=== PATIENT | female | born 1945 | race Caucasian/White ===

== ENCOUNTER 2016-07-23 10:15 | Outpatient (RCR) | payer MEDICARE, BC ==
[~2016-07-23 10:15] MED LIST: CLARITIN 1010 MG/TAB PO; COZAAR100 MG PO; DIFLUCAN 100MG100 MG PO; FLONASEALLERGY NS; GLUCOTROL XL10 MG PO; HUMULIN N PE100 U/ML SC; HYGROTON 2525 MG/TAB; JANUVIA 100MG100 MG PO; LEVAQUIN 5500 MG/TA1 PO; MULTI VITAMINS1 TAB PO; OSCAL 500 TAB500 MG PO; PREDNISONE20 MG PO; PRILOSEC 20MG20 MG PO; PROAIR HFA0.09 MG/AC IH; PROBIOTIC-MAJOR PO; TRIAM OI 0.1 80 TOP; TUSSIN DM 10 M118 M1 PO; VERAMYST27.5 MCG/A NS
[2017-02-04] MEDS ORDERED: ASPIRIN 81M81 MG/TA2 PO (16:26)
[2017-02-04] MEDS ORDERED: LIPITOR 10MG10 MG PO (16:26)
== END 2016-07-26 | disposition home or self-care (01) ==
LOC: MKS.ESL.PT
DX: M25.562 Pain in left knee (principal); Z98.890 Other specified postprocedural states
CPT/HCPCS: G0283-GP; G8978-GP; G8979-GP

== ENCOUNTER 2016-07-29 10:15 | Outpatient (RCR) | payer MEDICARE, BC ==
[2017-02-04] MEDS ORDERED: ASPIRIN 81M81 MG/TA2 PO (16:26)
[2017-02-04] MEDS ORDERED: LIPITOR 10MG10 MG PO (16:26)
== END 2016-10-25 | disposition home or self-care (01) ==
LOC: MKS.ESL.PT
DX: Z47.1 Aftercare following joint replacement surgery (principal); Z96.652 Presence of left artificial knee joint

== ENCOUNTER → 2017-01-05 | Outpatient (CLI) | payer MEDICARE, BC ==
[~2017-01-05] MED LIST changes: +ASPIRIN 81M81 MG/TA2 PO; +LIPITOR 10MG10 MG PO
== END ==
LOC: MC.RAD 12-30 11:00
DX: Z12.31 Encounter for screening mammogram for malignant neoplasm of breast (principal)

== ENCOUNTER → 2017-02-09 | Outpatient (CLI) | payer MEDICARE, BC ==
[~2017-02-09] VITALS: Ht 167.6 cm; Wt 91.5 kg
[2017-02-09 06:01] VITALS: BP 116/70; PULSE 86
[2017-02-09 07:00] VITALS: BP 134/71; PULSE 86
[2017-02-09 07:04] VITALS: BP 145/83; PULSE 107
[2017-02-09 07:05] VITALS: BP 143/83; PULSE 104
[2017-02-09 07:06] VITALS: BP 135/72; PULSE 101
[2017-02-09 07:07] VITALS: BP 135/74; PULSE 99
== END ==
LOC: COL.CARD 05:34
DX: E11.9 Type 2 diabetes mellitus without complications (principal); R07.9 Chest pain, unspecified; I10 Essential (primary) hypertension; Z80.2 Family history of malignant neoplasm of other respiratory and intrathoracic organs; Z80.3 Family history of malignant neoplasm of breast
CPT/HCPCS: A9502; J2785

== ENCOUNTER → 2018-01-19 | Outpatient (CLI) | payer MEDICARE, BC | LOC: MC.RAD 10:40 | DX: Z12.31 Encounter for screening mammogram for malignant neoplasm of breast (principal) ==

== ENCOUNTER → 2018-08-03 | Outpatient (CLI) | payer MEDICARE, BC | LOC: COL.VAS 08:43 | DX: R06.02 Shortness of breath (principal) ==

== ENCOUNTER → 2019-01-26 | Outpatient (CLI) | payer MEDICARE, BC | LOC: MC.RAD 15:32 | DX: Z12.31 Encounter for screening mammogram for malignant neoplasm of breast (principal) ==

== ENCOUNTER → 2020-02-01 | Outpatient (CLI) | payer MEDICARE, BC | LOC: MC.RAD 01-29 10:45 | DX: Z12.31 Encounter for screening mammogram for malignant neoplasm of breast (principal); N64.89 Other specified disorders of breast ==

== ENCOUNTER → 2020-02-08 | Outpatient (CLI) | payer MEDICARE, BC | LOC: MC.RAD 13:27 | DX: Z12.31 Encounter for screening mammogram for malignant neoplasm of breast (principal); N64.89 Other specified disorders of breast ==

== ENCOUNTER → 2020-05-13 | Outpatient (CLI) | payer MEDICARE, BC ==
[2005-11-27 18:10] VITALS: BP 169/92
[~2020-05-13] VITALS: Ht 167.6 cm; Wt 108.4 kg
[~2020-05-13] MED LIST changes: +00186-0370-20 IH; +ESTRACE0.1 MG/GM VG; +FENOGLIDE120 MG PO
[2020-05-13 15:33] VITALS: BP 106/72; PULSE 86; TEMP 97.5
== END ==
LOC: EUO 15:00
DX: M81.0 Age-related osteoporosis without current pathological fracture (principal)
CPT/HCPCS: J0897

== ENCOUNTER 2020-12-12 16:02 | Outpatient (CLI) | payer MEDICARE, BC ==
[2005-11-27 18:10] VITALS: BP 169/92
[~2020-12-12] VITALS: Ht 167.6 cm; Wt 107.1 kg
[~2020-12-12 16:02] MED LIST changes: -FENOGLIDE120 MG PO; +HUMULIN N PE100 U/ML SQ; +TRICOR 48MG48 MG PO
[2020-12-12] MEDS ORDERED: SINGULAIR 110 MG/TAB PO (16:28)
[2020-12-12] MEDS ORDERED: ACTOS30 MG PO (16:28)
[2020-12-12] MEDS ORDERED: VITAMIN D31000 I1 PO (16:29)
[2020-12-12 16:30] VITALS: BP 124/53; PULSE 93; TEMP 99
== END 2020-12-12 20:21 | disposition home or self-care (01) ==
LOC: EUO 16:02
DX: M81.0 Age-related osteoporosis without current pathological fracture (principal)
CPT/HCPCS: J0897

== ENCOUNTER 2021-06-17 14:55 | Outpatient (CLI) | payer MEDICARE, BC ==
[2005-11-27 18:10] VITALS: BP 169/92
[~2021-06-17 14:55] MED LIST changes: +ACTOS30 MG PO; +SINGULAIR 110 MG/TAB PO; +VITAMIND3 5000 PO
[2021-06-17 15:37] VITALS: BP 120/55; PULSE 94; TEMP 98.7
[2021-06-17] MEDS ORDERED: THE MEDICINE S200 M2 PO (15:53)
[2021-06-17] MEDS ORDERED: NATURE'S BLEND500 M1 PO (15:54)
[2021-06-17] MEDS ORDERED: OMEGA-3 1000 MG1 CAP PO (15:55)
[2021-06-17] MEDS ORDERED: PROLIA60 MG/ML SQ (16:01)
[2021-06-17] MEDS ORDERED: PROBIOTIC-MAJOR PO (16:08)
[2021-06-17] MEDS ORDERED: COLACE 100100 MG/CAP PO (16:08)
[2021-06-17] MEDS ORDERED: CALCIUM 600600 MG PO (16:09)
[2021-06-17] MEDS ORDERED: GLUCOTROL XL10 MG PO (16:09)
[2021-06-17] MEDS ORDERED: FARXIGA10 PO (16:09)
== END 2021-06-17 16:10 | disposition home or self-care (01) ==
LOC: EUO 14:55
DX: M81.0 Age-related osteoporosis without current pathological fracture (principal)
CPT/HCPCS: J0897

== ENCOUNTER 2021-12-25 12:58 | Outpatient (CLI) | payer MEDICARE, BC ==
[2005-11-27 18:10] VITALS: BP 169/92
[~2021-12-25] VITALS: Ht 167.6 cm; Wt 111.2 kg
[~2021-12-25 12:58] MED LIST changes: +CALCIUM 600600 MG PO; +COLACE 100100 MG/CAP PO; +FARXIGA10 PO; +NATURE'S BLEND500 M1 PO; +OMEGA-3 1000 MG1 CAP PO; +PROLIA60 MG/ML SQ; +THE MEDICINE S200 M2 PO
[2021-12-25 13:32] VITALS: BP 120/71; PULSE 85; TEMP 98
--- NOTE | 2021-12-25 14:05 | NUR ---
Pt states she feels ready to leave at this time. Respirations remain even and unlabored. No complaints following prolia and prior to departing. She ambulates from dept with steady gait, stating she will stop at restroom before leaving. Directions to elevator given. She is aware she should call Dr Love with concerns.
[2021-12-25] MEDS ORDERED: FARXIGA10 PO (14:10)
[2021-12-25] MEDS ORDERED: NEURONTIN300 MG/CAP PO (14:10)
[2021-12-25] MEDS ORDERED: [UNRECOGNIZED DRUG - SUPPLY] SQ (14:11)
== END 2021-12-25 16:30 | disposition home or self-care (01) ==
LOC: EUO 12:58
DX: M81.0 Age-related osteoporosis without current pathological fracture (principal)
CPT/HCPCS: J0897

== ENCOUNTER → 2022-02-26 | Outpatient (CLI) | payer MEDICARE, BC ==
[~2022-02-26] MED LIST changes: +NEURONTIN300 MG/CAP PO; +[UNRECOGNIZED DRUG - SUPPLY] SQ
== END ==
LOC: MC.RAD 14:12
DX: Z12.31 Encounter for screening mammogram for malignant neoplasm of breast (principal)

== ENCOUNTER 2022-12-03 14:00 | Outpatient (CLI) | payer MEDICARE, BC ==
[2005-11-27 18:10] VITALS: BP 169/92
[~2022-12-03] VITALS: Ht 165.1 cm; Wt 111.1 kg
[~2022-12-03 14:00] MED LIST changes: -NEURONTIN300 MG/CAP PO; +NEURONTIN400 MG/CAP PO; +NORCO 325 MG-51 TAB PO
[2022-12-03 14:17] VITALS: BP 104/60; PULSE 86; TEMP 98.9
[2022-12-03] MEDS ORDERED: Denosumab 60 MG/ML SYRINGE SQ ONE (14:30)
--- NOTE | 2022-12-03 14:35 | NUR ---
Pt tolerated prolia injection without issue. She exits dept with steady gait.
[2022-12-03] MEDS ORDERED: [UNRECOGNIZED DRUG - SUPPLY] SQ (14:46)
[2022-12-03] MEDS ORDERED: COLACE 100100 MG/CAP PO (14:51)
[2023-06-03] MEDS ORDERED: COMPLETE MULTI1 TAB PO (16:03)
[2023-11-30] MEDS ORDERED: EVENITY (2210 MG/2.3 SQ (15:47)
[2023-11-30] MEDS ORDERED: NEURONTIN600 MG/TAB PO (15:51)
== END 2022-12-03 14:35 | disposition home or self-care (01) ==
LOC: EUO 14:00
DX: M81.0 Age-related osteoporosis without current pathological fracture (principal)
CPT/HCPCS: J0897

== ENCOUNTER → 2023-04-07 | Outpatient (CLI) | payer MEDICARE, BC ==
[~2023-04-07] MED LIST changes: +NEURONTIN300 MG/CAP PO; -NEURONTIN400 MG/CAP PO
== END ==
LOC: CANSCHCLI → MC.RAD 10:45
DX: Z12.31 Encounter for screening mammogram for malignant neoplasm of breast (principal)

== ENCOUNTER 2023-07-20 13:45 | Outpatient (RCR) | payer MEDICARE, BC ==
[~2023-07-20 13:45] MED LIST changes: +COMPLETE MULTI1 TAB PO; -NEURONTIN300 MG/CAP PO; +NEURONTIN400 MG/CAP PO
== END 2023-07-21 | disposition home or self-care (01) ==
LOC: MKS.ESL.PT
DX: R26.81 Unsteadiness on feet (principal)

== ENCOUNTER 2024-02-13 11:16 | Emergency (ER) | payer MEDICARE, BC ==
[~2024-02-13] VITALS: Ht 165.1 cm; Wt 75.0 kg
[~2024-02-13 11:16] MED LIST changes: +EVENITY (2210 MG/2.3 SQ; +NEURONTIN600 MG/TAB PO
[2024-02-13] MEDS ORDERED: LEVAQUIN 750MG750 M1 PO (12:23)
[2024-02-13 12:34] VITALS: BP 149/75; PULSE 82; TEMP 98.1
== END 2024-02-13 12:36 | disposition home or self-care (01) ==
LOC: COL.ER 11:16
DX: S61.452A Open bite of left hand, initial encounter (principal); S51.851A Open bite of right forearm, initial encounter; Z88.0 Allergy status to penicillin; Z87.891 Personal history of nicotine dependence; W55.01XA Bitten by cat, initial encounter